=== PATIENT | male | born 1935 | race Caucasian/White ===

== ENCOUNTER → 2020-12-07 | Day surgery (SDC) | payer MEDICARE, OTHER ==
[~2020-12-07] VITALS: Ht 185.4 cm; Wt 94.3 kg
[~2020-12-07] MED LIST: ACETAMINOPHEN500 M1 PO; ALLOPURINOL 10100 MG PO; AMARYL2 MG PO; AMLODIPINE BESYL5 MG PO; ASPIRIN EC81 MG PO; COZAAR100 MG PO; METFORMIN HCL500 M3 PO; OMEPRAZOLE 20MG20 MG PO; PERCOCET 5-3251 EACH PO; SOTALOL80 MG PO; SUMATRIPTAN SUC50 MG PO; VOLTAREN **OUT50 MG PO; VOLTAREN TOP
[2020-12-07 11:11] LABS: HCT 36.7 % (42.0-52.0); HGB 12.2 g/dl (13.2-18.0); MCHC 33.2 g/dL (32.0-36.0); MCV 93.4 fL (78.0-100.0); MPV 10.2 fL (6.0-9.5); RBC 3.93 M/uL (4.70-6.00); RDW 13.2 % (11.5-14.0); WBC 6.9 K/uL (4.0-10.5)
[2020-12-07 11:47] LABS: ALBUMIN 3.1 g/dL (3.4-5.0); BILIRUBIN - TOTAL 0.4 mg/dL (0.2-1.0); BUN/CREAT RATIO (CALC) 17.3 RATIO; CREATININE 1.27 mg/dL (0.67-1.17); GLOBULIN (CALCULATION) 3.8 g/dL; POTASSIUM 4.2 mmol/L (3.5-5.1); TOTAL PROTEIN 6.9 g/dL (6.4-8.2)
== END | disposition home or self-care (01) ==
LOC: FAS 10:01
PROVIDERS: Orthopaedic Surgery
DX: M65.332 Trigger finger, left middle finger (principal); M65.842 Other synovitis and tenosynovitis, left hand; E11.9 Type 2 diabetes mellitus without complications; I11.9 Hypertensive heart disease without heart failure; Z88.0 Allergy status to penicillin
CPT/HCPCS: 36415; 80053; J2704; J7120

== ENCOUNTER 2021-01-03 14:48 | Emergency (ER) | payer MEDICARE, OTHER ==
[2021-01-03 17:17] LABS: BASOPHIL 0.7 % (0-2); EOSINOPHIL 4.8 % (0-7); HCT 35.4 % (42.0-52.0); HGB 11.7 g/dl (13.2-18.0); LYMPHOCYTE 32.7 % (15-48); MCH 31.2 pg (25.0-31.0); MCHC 33.1 g/dL (32.0-36.0); MCV 94.4 fL (78.0-100.0); MONOCYTE 8.8 % (0-12); MPV 10.2 fL (6.0-9.5); NEUTROPHIL 52.3 % (41-80); NRBC 0; PLT 248 K/uL (150-400); RBC 3.75 M/uL (4.70-6.00); RDW 13.3 % (11.5-14.0); WBC 6.9 K/uL (4.0-10.5)
[2021-01-03 17:33] LABS: BUN/CREAT RATIO (CALC) 16.5 RATIO; C-REACTIVE PROTEIN 0.8 mg/dL (<=0.90); CREATININE 1.58 mg/dL (0.67-1.17); POTASSIUM 4.8 mmol/L (3.5-5.1)
[2021-01-03] MEDS ORDERED: ZOVIRAX200 MG PO (19:18)
[2021-01-03] MEDS ORDERED: CLEOCIN300 MG PO (19:18)
[2021-01-05 22:06] LABS: CHLAMYDIA TRACHOMATIS, NAA Negative (Negative); NEISSERIA GONORRHOEAE, NAA Negative (Negative)
== END 2021-01-03 20:34 | disposition home or self-care (01) ==
LOC: FER 14:48
PROVIDERS: Emergency Medicine
DX: N49.2 Inflammatory disorders of scrotum (principal); I10 Essential (primary) hypertension; E11.9 Type 2 diabetes mellitus without complications; Z88.0 Allergy status to penicillin
CPT/HCPCS: 36415; 80048; 85025; 86140; 86593; 87491; 87529; 87591

== ENCOUNTER 2021-06-16 12:09 | Emergency (ER) | payer MEDICARE, OTHER ==
[~2021-06-16 12:09] MED LIST changes: +CLEOCIN300 MG PO; +ZOVIRAX200 MG PO
[2021-06-16 14:00] LABS: BASOPHIL 0.2 % (0-2); EOSINOPHIL 0.3 % (0-7); HCT 38.3 % (42.0-52.0); HGB 12.9 g/dl (13.2-18.0); LYMPHOCYTE 8.9 % (15-48); MCH 31.5 pg (25.0-31.0); MCHC 33.7 g/dL (32.0-36.0); MCV 93.4 fL (78.0-100.0); MONOCYTE 9.2 % (0-12); MPV 10.3 fL (6.0-9.5); NEUTROPHIL 80.8 % (41-80); NRBC 0; PLT 248 K/uL (150-400); RDW 13.3 % (11.5-14.0); WBC 16.5 K/uL (4.0-10.5)
[2021-06-16 14:08] LABS: BUN/CREAT RATIO (CALC) 11.5 RATIO; CREATININE 1.65 mg/dL (0.67-1.17); POTASSIUM 4.2 mmol/L (3.5-5.1)
[2021-06-16 14:43] LABS: BILIRUBIN NEGATIVE (NEGATIVE); BLOOD 2+ Ery/uL (NEGATIVE); CLARITY CLEAR (CLEAR); COLOR YELLOW (YELLOW); GLUCOSE (U) 2+ mg/dL (NORMAL); LEUKOCYTES NEGATIVE Leu/uL (NEGATIVE); NITRITE NEGATIVE (NEGATIVE); PROTEIN 3+ mg/dL (NEGATIVE); UROBILINOGEN 0.2 mg/dL (0.2-1.0)
[2021-06-16 14:53] LABS: BACTERIA TRACE; SQUAMOUS EPITHELIAL CELLS RARE
[2021-06-16] MEDS ORDERED: CIPRO500 MG PO (15:01)
[2021-06-16] MEDS ORDERED: FLOMAX 0.4 MG0.4 MG PO (15:08)
== END 2021-06-16 15:22 | disposition home or self-care (01) ==
LOC: FER 12:09
PROVIDERS: Emergency Medicine
DX: N30.91 Cystitis, unspecified with hematuria (principal); N40.1 Benign prostatic hyperplasia with lower urinary tract symptoms; R35.0 Frequency of micturition; R39.15 Urgency of urination; E11.9 Type 2 diabetes mellitus without complications; Z88.0 Allergy status to penicillin
CPT/HCPCS: 36415; 80048; 81001; 85025; 87040; 87088